=== PATIENT | female | born 1965 | race African-American/Black ===

== ENCOUNTER 2016-10-21 15:28 | Emergency (ER) | payer MEDICAID ==
[~2016-10-21] VITALS: Ht 157.5 cm; Wt 64.0 kg
[2016-10-21 23:00] LABS: CLARITY URINE TURBID (CLEAR); COLOR URINE YELLOW (YELLOW); GLUCOSE URINE NEGATIVE (NEGATIVE); KETONES URINE NEGATIVE (NEGATIVE); LEUKOCYTE ESTERASE URINE 3+ (NEGATIVE); NITRITE URINE POSITIVE (NEGATIVE); OCCULT BLOOD URINE 3+ (NEGATIVE); PH URINE 5.5 (4.5-8.0); PROTEIN URINE 1+ (NEGATIVE); SPECIFIC GRAVITY URINE 1.013 (1.005-1.030); UROBILINOGEN URINE 0.2 E.U./dL (0.2-1.0)
[2016-10-21] MEDS ORDERED: HYDROCODONE/APAP 7.5/325MG 1 TAB TABLET PO ONE (23:00)
[2016-10-21 23:23] LABS: BACTERIA URINE 3+; SQUAMOUS EPITHELIAL CELL URINE NONE SEEN /lpf (RARE/1+); WBC URINE 50-100 /hpf (0-2)
[2016-10-22] MEDS ORDERED: LIDOCAINE HCL 1% 20ML VIAL (Pyxis) INJ INFIL ONE (00:15)
[2016-10-22] MEDS ORDERED: CEFTRIAXONE SODIUM 1 G/VIAL IM ONE (00:15)
[2016-10-22 01:59] VITALS: BP 128/77
== END 2016-10-22 02:00 | disposition home or self-care (01) ==
LOC: ER 23:00
DX: N39.0 Urinary tract infection, site not specified (principal); Z87.891 Personal history of nicotine dependence
CPT/HCPCS: 76770; 81001; 96372; 99285; J0696; J3490; Z7610

== ENCOUNTER 2023-09-18 06:40 | Emergency (ER) | payer MEDICAID ==
[~2023-09-18] VITALS: Ht 170.2 cm; Wt 85.0 kg
[~2023-09-18 06:40] MED LIST: NAPR-1176 MT
[2023-09-18 06:51] VITALS: O2SAT 99
[2023-09-18] MEDS ORDERED: AMOX1TAB16 MT (09:21)
[2023-09-18 09:48] VITALS: BP 147/71; PULSE 73; RESP 18; TEMP 98.3
== END 2023-09-18 09:49 | disposition home or self-care (01) ==
LOC: ER 06:40
DX: J32.9 Chronic sinusitis, unspecified (principal)
CPT/HCPCS: 71045; 99283

== ENCOUNTER 2024-02-13 00:55 | Emergency (ER) | payer MEDICAID ==
[~2024-02-13] VITALS: Ht 157.5 cm; Wt 83.0 kg
[~2024-02-13 00:55] MED LIST changes: +AMOX1TAB16 MT
[2024-02-13 00:57] VITALS: BP 155/84; PULSE 74; RESP 16; TEMP 98.1; O2SAT 94
[2024-02-13 01:41] LABS: BASOPHILS % 1.1 % (0.0-2.0); EOSINOPHILS % 4.6 % (0.0-5.0); HEMATOCRIT. 38.4 % (36.0-48.0); HEMOGLOBIN. 13.1 g/dL (12.0-16.0); LYMPHOCYTES % 34.9 % (20.0-50.0); MEAN CORPUSCULAR HEMOGLOBIN 30.1 pg (28.0-32.0); MEAN CORPUSCULAR HGB CONC 34.1 g/dL (31.0-37.0); MEAN CORPUSCULAR VOLUME 88.2 fL (81.0-99.0); MEAN PLATELET VOLUME 6.6 fl (7.4-10.4); MONOCYTES % 10.7 % (2.0-8.0); NEUTROPHILS % 48.7 % (40.0-76.0); PLATELET 318 x1000/uL (130-400); RED BLOOD CELL COUNT 4.35 mill/uL (4.2-5.4); RED CELL DISTRIBUTION WIDTH 14.3 % (11.6-14.6); WHITE BLOOD COUNT 4.7 x1000/uL (4.5-11.0)
[2024-02-13 01:50] LABS: CHLORIDE 108 mEq/L (98-107); POTASSIUM 3.4 mEq/L (3.5-5.1); SODIUM 140 mEq/L (136-145)
[2024-02-13 01:51] LABS: CARBON DIOXIDE 26 mEq/L (21-32)
[2024-02-13 01:52] LABS: CALCIUM 9.6 mg/dL (8.7-10.4)
[2024-02-13 01:56] LABS: GLUCOSE 110 mg/dL (70-105); UREA NITROGEN BLOOD 15 mg/dL (9-23)
[2024-02-13 01:57] LABS: TROPONIN I HIGH SENSITIVITY 5 ng/L (3.0-34)
[2024-02-13 01:58] LABS: ALANINE AMINOTRANSFERASE 13 IU/L (10-49); ALBUMIN 4.3 g/dL (3.2-4.8); ASPARTATE AMINOTRANSFERASE 15 IU/L (<34)
[2024-02-13 01:59] LABS: BILIRUBIN TOTAL 0.2 mg/dL (0.1-1.0); PROTEIN TOTAL 7.4 g/dL (6.0-8.3)
[2024-02-13] MEDS ORDERED: PRED10TA MT (03:40)
[2024-02-13] MEDS ORDERED: BENZ100C86 MT (03:40)
[2024-02-13] MEDS ORDERED: DOXY-456 MT (03:40)
[2024-02-13] MEDS: BENZONATATE 100MG CAPSULE PO NR (03:45)
== END 2024-02-13 07:39 | disposition home or self-care (01) ==
LOC: ER 00:55
DX: J18.8 Other pneumonia, unspecified organism (principal); J40 Bronchitis, not specified as acute or chronic
CPT/HCPCS: 36415; 71045; 80053; 84484; 85025; 93005; 99285